=== PATIENT | male | born 1940 | race Caucasian/White ===

== ENCOUNTER → 2020-01-14 | Outpatient (CLI) | payer SELFPAY ==
[2020-01-14 14:20] LABS: BASOPHILS ABSOLUTE AUTO 0.04 K/mm3 (0.00-0.23); BASOPHILS PERCENT AUTO 1 % (0-2); EOSINOPHILS ABSOLUTE AUTO 0.07 K/mm3 (0.00-0.68); EOSINOPHILS PERCENT AUTO 1 % (0-6); Hematocrit 45.1 % (37.0-53.0); Hemoglobin 15.1 g/dL (13.5-17.5); IMMATURE GRAN ABSOLUTE AUTO 0.02 K/mm3 (0.00-0.10); IMMATURE GRAN PERCENT AUTO 0 % (0-1); LYMPHOCYTES ABSOLUTE AUTO 1.46 K/mm3 (0.84-5.20); LYMPHOCYTES PERCENT AUTO 24 % (21-46); MONOCYTES ABSOLUTE AUTO 0.51 K/mm3 (0.16-1.47); MONOCYTES PERCENT AUTO 9 % (4-13); Mean Corpuscular HGB Conc 33.5 g/dL (31.5-36.5); Mean Corpuscular Volume 99 fL (80-100); Mean Platelet Volume 11.5 fL (9.1-12.4); NEUTROPHILS ABSOLUTE AUTO 3.93 K/mm3 (1.96-9.15); NEUTROPHILS PERCENT AUTO 65 % (41-73); Platelet Count 198 K/mm3 (150-400); RDW Standard Deviation 47.4 fL (35.1-46.3); Red Blood Cell Count 4.58 M/mm3 (4.30-5.90); White Blood Cell Count 6.03 K/mm3 (4.00-11.30)
[2020-01-14 14:37] LABS: Alanine Aminotransfer (ALT/SGP 21 U/L (12-78); Albumin, Blood 3.6 g/dL (3.4-5.0); Albumin/Globulin Ratio 0.8 (0.8-1.8); Alk Phos 112 U/L (50-136); Anion Gap 7 mmol/L (6-16); Aspartate Aminotrans (AST/SGOT 21 U/L (12-37); Bilirubin, Total 0.6 mg/dL (0.1-1.0); Blood Urea Nitrogen 14 mg/dL (8-24); Bun/Creatinine Ratio 19.6 (12.0-20.0); CHOL/HDL RATIO 2.5; CO2, Blood 29 mmol/L (21-32); Calcium, Blood 8.7 mg/dL (8.5-10.1); Chloride, Blood 103 mmol/L (98-108); Cholesterol 143 mg/dL (50-200); Creatinine, Blood 0.72 mg/dL (0.60-1.20); Globulin, Blood 4.4 g/dL (2.2-4.0); Glomerular Filtration Rate >60 (60-); Glucose, Blood 111 mg/dL (70-99); HDL Cholesterol 57 mg/dL (>39); LDL/HDL RATIO 1.2; Low Density Lipoprotein Chol 70 mg/dL (0-110); Potassium, Blood 2.9 mmol/L (3.5-5.5); Sodium, Blood 139 mmol/L (136-145); Triglycerides 80 mg/dL (30-160); Very Low Density Lipoprot Chol 16 mg/dL (6-32)
== END | disposition home or self-care (01) ==
LOC: LAB 13:25 → LAB SHORT 13:25
PROVIDERS: Physician Assistant
DX: I10 Essential (primary) hypertension (principal)
CPT/HCPCS: 80053; 80061; 85025

== ENCOUNTER → 2020-04-28 | Outpatient (CLI) | payer SELFPAY ==
[~2020-04-28] MED LIST: CEFP200 PO
[2020-04-28 20:17] LABS: Bilirubin, Urine Neg (Neg); Blood, Urine 1+ (Neg); Glucose Qualitative, Urine 1+ (Neg); Ketones, Urine Neg (Neg); Leukocyte Esterase, Urine Neg (Neg); Nitrite, Urine Neg (Neg); Protein, Urine 2+ (Neg); Specific Gravity, Urine 1.015 (1.003-1.022); Urobilinogen, Urine NORM (Normal)
[2020-04-28 20:25] LABS: Appearance, Urine Clear (Clear); Color, Urine Yellow (P-Yellow)
[2020-04-28 20:26] LABS: Renal Epithelial Few /hpf (0-Rare); White Blood Cells, Urine 0-2 /hpf (0-5)
[2020-04-28 20:28] LABS: WBC Cast 0-2 /lpf (0)
[2020-04-28 20:29] LABS: Bacteria Few /hpf; Squamous Epithelial Cells Rare /hpf (Few); Transitional Epithelial Cells Rare /hpf (0-Rare)
== END | disposition home or self-care (01) ==
LOC: LAB SHORT 19:05 → LAB 19:05
PROVIDERS: Registered Nurse
DX: N39.0 Urinary tract infection, site not specified (principal)
CPT/HCPCS: 81001; 87086

== ENCOUNTER 2021-12-06 20:00 | Emergency (ER) | payer SELFPAY ==
[~2021-12-06] VITALS: Ht 175.3 cm; Wt 81.7 kg
[2021-12-06] MEDS ORDERED: MIRTAZAPINE PO (20:11)
[2021-12-06 20:30] LABS: Source, Urine Clean Catch
[2021-12-06 20:41] LABS: Bilirubin, Urine Neg (Neg); Blood, Urine 3+ (Neg); Glucose Qualitative, Urine Neg (Neg); Ketones, Urine Neg (Neg); Leukocyte Esterase, Urine 3+ (Neg); Nitrite, Urine Neg (Neg); Protein, Urine 1+ (Neg); Urobilinogen, Urine NORM (Normal)
[2021-12-06 20:54] LABS: Appearance, Urine Hazy (Clear); Color, Urine Yellow (P-Yellow)
[2021-12-06 20:55] LABS: Bacteria Few /hpf; Squamous Epithelial Cells Not Seen /hpf (Few); White Blood Cells, Urine TNTC /hpf (0-5)
[2021-12-06] MEDS ORDERED: Macrobid 100 M100 MG PO (21:03)
== END 2021-12-06 21:45 | disposition home or self-care (01) ==
LOC: ER 20:00
PROVIDERS: Physician Assistant
DX: N39.0 Urinary tract infection, site not specified (principal); I10 Essential (primary) hypertension; Z87.891 Personal history of nicotine dependence; Z79.899 Other long term (current) drug therapy
CPT/HCPCS: 81001; A9270

== ENCOUNTER 2023-06-23 10:29 | Inpatient (IN) | payer OTHER ==
[~2023-06-23] VITALS: Ht 185.4 cm; Wt 97.4 kg
[~2023-06-23 10:29] MED LIST changes: +MIRTAZAPINE PO; +Macrobid 100 M100 MG PO
[2023-06-23 10:49] LABS: BASOPHILS ABSOLUTE AUTO 0.04 K/mm3 (0.00-0.23); BASOPHILS PERCENT AUTO 1 % (0-2); EOSINOPHILS ABSOLUTE AUTO 0.14 K/mm3 (0.00-0.68); EOSINOPHILS PERCENT AUTO 2 % (0-6); Hemoglobin 14.8 g/dL (13.5-17.5); IMMATURE GRAN ABSOLUTE AUTO 0.04 K/mm3 (0.00-0.10); IMMATURE GRAN PERCENT AUTO 1 % (0-1); LYMPHOCYTES ABSOLUTE AUTO 1.92 K/mm3 (0.84-5.20); LYMPHOCYTES PERCENT AUTO 24 % (21-46); MONOCYTES PERCENT AUTO 8 % (4-13); Mean Corpuscular HGB 34.3 pg (26.0-34.0); Mean Corpuscular HGB Conc 33.6 g/dL (31.5-36.5); Mean Corpuscular Volume 102 fL (80-100); Mean Platelet Volume 9.9 fL (9.1-12.4); NEUTROPHILS ABSOLUTE AUTO 5.14 K/mm3 (1.96-9.15); NEUTROPHILS PERCENT AUTO 65 % (41-73); Platelet Count 163 K/mm3 (150-400); RDW Coefficient Variation 12.9 % (11.7-14.2); RDW Standard Deviation 49.1 fL (35.1-46.3); Red Blood Cell Count 4.32 M/mm3 (4.30-5.90); White Blood Cell Count 7.88 K/mm3 (4.00-11.30)
[2023-06-23 11:07] LABS: Albumin, Blood 3.2 g/dL (3.4-5.0); Albumin/Globulin Ratio 0.7 (0.8-1.8); Bilirubin, Total 0.3 mg/dL (0.1-1.0); Bun/Creatinine Ratio 28.2 (12.0-20.0); Creatinine, Blood 1.03 mg/dL (0.60-1.20); Globulin, Blood 4.4 g/dL (2.2-4.0); Potassium, Blood 4.1 mmol/L (3.5-5.5); Total Protein, Blood 7.6 g/dL (6.4-8.2)
[2023-06-23 12:07] LABS: Influenza A, PCR NEGATIVE (NEGATIVE); Influenza B, PCR NEGATIVE (NEGATIVE); Resp Syncytial Virus, PCR NEGATIVE (NEGATIVE); SARS-Cov-2 (COVID-19) PCR, MMC NEGATIVE (NEGATIVE)
[2023-06-23 17:19] VITALS: BP 147/74
--- NOTE | 2023-06-23 18:24 | NUR ---
ADMISSION NOTES: PATIENT ARRIVES TO ROOM AT 1713 FROM ED FOR DX'S OF COPD EXACERBATIONS. PATIENT IS AWAKE, ALERT AND ORIENTED TO SELF, PLACED AND CURRENT SITUATIONS, BUT COULD NOT RECALL THE DATES. PATIENT ORIENTATED TO ROOM AND CALL SYSTEM. ADMISSION, MEDRIC AND SKIN ASSESSMENT c 2 RN'S PRIZE COORDINATOR COMPLETED. PATIENT REPORTS "SOB c ACTIVITIES AND FEELING DEPRESSED." BUT NOT ABLE TO ELABORATE FURTHER. PATIENT LUNGS COARSE AND CRACKLES T/O TO AUSCULTIONS. NONPRODUCTIVE COUGH. PATIENT DENIES CP/PRESSURE, DIZZINESS, N/V AND GENERALIZED PAIN. PATIENT IS CONTINENCE OF BLADDER AND AMBULATES TO BATHROOM c 1 ASSIST AND FWW. PIV TO R FOREARM INFUSING ABX. PATIENT DECLINED TO EAT HIS DINNER. VITAL SIGNS REVIEWED. BED ALARM ON FOR SAFETY. CALL LIGHT IN REACH.
[2023-06-23 19:42] VITALS: BP 117/65
[2023-06-24 04:40] VITALS: BP 127/68
[2023-06-24 04:42] VITALS: BP 131/69
[2023-06-24 05:00] LABS: BASOPHILS ABSOLUTE AUTO 0.01 K/mm3 (0.00-0.23); BASOPHILS PERCENT AUTO 0 % (0-2); EOSINOPHILS PERCENT AUTO 0 % (0-6); Hematocrit 41.1 % (37.0-53.0); Hemoglobin 14.3 g/dL (13.5-17.5); IMMATURE GRAN ABSOLUTE AUTO 0.07 K/mm3 (0.00-0.10); IMMATURE GRAN PERCENT AUTO 1 % (0-1); LYMPHOCYTES ABSOLUTE AUTO 0.97 K/mm3 (0.84-5.20); LYMPHOCYTES PERCENT AUTO 8 % (21-46); MONOCYTES ABSOLUTE AUTO 0.21 K/mm3 (0.16-1.47); MONOCYTES PERCENT AUTO 2 % (4-13); Mean Corpuscular HGB 34.6 pg (26.0-34.0); Mean Corpuscular HGB Conc 34.8 g/dL (31.5-36.5); Mean Corpuscular Volume 100 fL (80-100); Mean Platelet Volume 10.5 fL (9.1-12.4); NEUTROPHILS PERCENT AUTO 90 % (41-73); Platelet Count 156 K/mm3 (150-400); RDW Standard Deviation 47.2 fL (35.1-46.3); Red Blood Cell Count 4.13 M/mm3 (4.30-5.90); White Blood Cell Count 12.06 K/mm3 (4.00-11.30)
[2023-06-24 05:21] LABS: Albumin/Globulin Ratio 0.8 (0.8-1.8); Bilirubin, Total 0.3 mg/dL (0.1-1.0); Bun/Creatinine Ratio 36.1 (12.0-20.0); Calcium, Blood 9.2 mg/dL (8.5-10.1); Creatinine, Blood 0.86 mg/dL (0.60-1.20); Globulin, Blood 3.8 g/dL (2.2-4.0); Potassium, Blood 4.8 mmol/L (3.5-5.5); Total Protein, Blood 6.8 g/dL (6.4-8.2)
--- NOTE | 2023-06-24 05:39 | NUR ---
SHIFT SUMMARY PT IS A&OX4, FORGETFUL AT TIMES. NORMOTENSIVE, HR IN THE 80'S, AFEBRILE, O2 SATS >90% ON 2L NC. DYSPNEIC AND WORK OF BREATHING INCREASES WITH EXERTION. DENIES PAIN, BUT GROANS AND MOANS A LOT. TOLERATING A REGULAR DIET, AND LOVES CHOCOLATE. HIS DENTURES ARE AT [facility]. X1 SBA TO BR. VOIDS IN TOILET, CONTINENT, BRIEF IN PLACE. NO BM THIS SHIFT. PT HAS FEELING OF IMPENDING DOOM, AND IS ANXIOUS. BED ALARM SET FOR PTS SAFETY. BED IN LOWEST POSITION AND CALL LIGHT WITHIN REACH. FIRE SAFETY CHECKS COMPLETED
[2023-06-24 07:56] VITALS: BP 121/61
[2023-06-24] MEDS ORDERED: HYDCHL50 PO (10:21)
[2023-06-24] MEDS ORDERED: FLOMAX0.4 MG PO (10:22)
--- NOTE | 2023-06-24 14:13 | NUR ---
Upon receiving a referral for spiritual care, I visited the patient, Patient immediately tells me about his yrs in the [employer] and how they were forma tive to his career choice. 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 He tells me about his struggles with [employer] and yet he admits to a "greater something out there." He explains about the estrangement with his son and ex- and his continued contact by phone with his dtr. We discuss possible pathways of reconciliation. I provide therapeutic listening, prayer and gentle funeral planning counselor. Patient responded well and showed signs of greater peace. I will cotninue to remain available to patient and his family.
--- NOTE | 2023-06-24 18:30 | NUR ---
SHIFT SUMMARY: NO ACUTE EVENTS. DENIED PAIN. ON ROOM AIR, CONTINUOUS OXIMETRY SHOWS O2 SATS 88-92%. GETTING UP TO BR WITH ONE PERSON ASSIST. HAD VERY SMALL BM TODAY. WORKED WITH PHYSICAL THERAPY. HAS PERIODS OF CONFUSION AND FORGETFULNESS. UP IN CHAIR PART OF THE DAY.
[2023-06-24 19:16] VITALS: BP 118/70
--- NOTE | 2023-06-25 02:45 | NUR ---
PT OXYGEN DOWN TO 88 WHILE ASLEEP- APPLIED 1L OXYGEN- PT OXYGEN INCREASES WNL WHILE AWAKE-
[2023-06-25 02:46] VITALS: BP 120/58
[2023-06-25 05:09] LABS: BASOPHILS ABSOLUTE AUTO 0.02 K/mm3 (0.00-0.23); BASOPHILS PERCENT AUTO 0 % (0-2); EOSINOPHILS PERCENT AUTO 0 % (0-6); Hematocrit 43.7 % (37.0-53.0); Hemoglobin 14.4 g/dL (13.5-17.5); IMMATURE GRAN ABSOLUTE AUTO 0.12 K/mm3 (0.00-0.10); IMMATURE GRAN PERCENT AUTO 1 % (0-1); LYMPHOCYTES ABSOLUTE AUTO 1.15 K/mm3 (0.84-5.20); LYMPHOCYTES PERCENT AUTO 7 % (21-46); MONOCYTES ABSOLUTE AUTO 0.52 K/mm3 (0.16-1.47); MONOCYTES PERCENT AUTO 3 % (4-13); Mean Corpuscular Volume 103 fL (80-100); Mean Platelet Volume 10.5 fL (9.1-12.4); NEUTROPHILS ABSOLUTE AUTO 15.98 K/mm3 (1.96-9.15); NEUTROPHILS PERCENT AUTO 90 % (41-73); Platelet Count 155 K/mm3 (150-400); RDW Coefficient Variation 13.3 % (11.7-14.2); RDW Standard Deviation 50.9 fL (35.1-46.3); Red Blood Cell Count 4.23 M/mm3 (4.30-5.90); White Blood Cell Count 17.79 K/mm3 (4.00-11.30)
[2023-06-25 05:35] LABS: Bun/Creatinine Ratio 37.9 (12.0-20.0); Calcium, Blood 9.4 mg/dL (8.5-10.1); Creatinine, Blood 1.03 mg/dL (0.60-1.20); Potassium, Blood 5.6 mmol/L (3.5-5.5)
--- NOTE | 2023-06-25 06:43 | NUR ---
SHIFT SUMMARY BEDSIDE REPORT FROM SARAH LEAL RN- PT UP TO BATHROOM DURING BEDSIDE REPORT- PT AMBULATES WITHOUT PROBLEMS- ALLOWED PT TO BE INDEPENDENT IN ROOM UNTIL OXYGEN WAS APPLIED, ENCOURAGED PT TO CALL TO ASSIST WITH TAKING OFF OXYGEN AND SENIOR BEHAVIORAL SCIENTIST- PT AGREED AND CALLED APPROPRIATELY REST OF SHIFT- PT K+ 5.6- CALL TO DR. AVILA- NO NEW ORDERS AT THIS TIME BED LOW POSITION, CALL LIGHT WITHIN REACH
[2023-06-25 07:34] VITALS: BP 126/62
[2023-06-25] MEDS ORDERED: Incruse Ellipta 62.5 INH (10:08)
[2023-06-25] MEDS ORDERED: PRED20 PO (13:54)
[2023-06-25] MEDS ORDERED: AMOCLA875 PO (13:55)
[2023-06-25 14:59] VITALS: BP 111/56
--- NOTE | 2023-06-25 15:35 | NUR ---
PATIENT DISCHARGED TO [facility] VIA W/C VAN. IV SALINE LOCK REMOVED WITHOUT INCIDENT. NEW MEDICATIONS FAXED TO [facility]. PT DID NOT VERBALIZE UNDERSTANDING OF D/C INSTRUCTIONS HE STATED "I'M NOT SURE IF I CAN REMEMBER ALL THAT." ASSURED HIM THAT [facility] WILL HELP HIM WITH HIS NEW MEDICATIONS. PT WAS ASSISTED IN GETTING DRESSED IN HIS OWN CLOTHING. OFF UNIT VIA W/C AT 1535. NO PERSONAL BELONGINGS LEFT BEHIND IN ROOM.
== END 2023-06-25 15:35 | disposition home health service (06) | DRG 189 ==
LOC: ER 10:29 → MEDS 10:30
PROVIDERS: Emergency Medicine; Family Medicine; Student in an Organized Health Care Education/Training Program; ADMIT Hospitalist
DX: J96.01 Acute respiratory failure with hypoxia (principal); J44.1 Chronic obstructive pulmonary disease with (acute) exacerbation; N40.0 Benign prostatic hyperplasia without lower urinary tract symptoms; I10 Essential (primary) hypertension; Z66 Do not resuscitate; I71.40 Abdominal aortic aneurysm, without rupture, unspecified; Z87.891 Personal history of nicotine dependence; Z11.52 Encounter for screening for COVID-19
CPT/HCPCS: 0241U; 36415; 71045; 80048; 80053; 83880; 84484; 85025; 93005; 93010; 94640; 94644; 94664; 94760; 94762; 96365; 96367; 96372; 96374; 96375; 96376; 97110; 97116; 97162; 99285-25; A9270; G0378; J0456; J0696; J1650; J2930; J7050; J7512

== ENCOUNTER → 2024-02-04 | Outpatient (CLI) | payer OTHER ==
[~2024-02-04] MED LIST changes: +AMOCLA875 PO; +FLOMAX0.4 MG PO; +HYDCHL50 PO; +Incruse Ellipta 62.5 INH; +PRED20 PO
[2024-02-04 15:28] LABS: Source, Urine Voided
[2024-02-04 17:23] LABS: Appearance, Urine Hazy (Clear); Bilirubin, Urine Neg (Neg); Blood, Urine Neg (Neg); Color, Urine Yellow (P-Yellow); Glucose Qualitative, Urine Neg (Neg); Ketones, Urine Neg (Neg); Leukocyte Esterase, Urine 2+ (Neg); Nitrite, Urine Neg (Neg); Protein, Urine Neg (Neg); Urobilinogen, Urine NORM (Normal)
[2024-02-04 17:42] LABS: Bacteria Few /hpf; Red Blood Cells, Urine 0-2 /hpf (0-2); Squamous Epithelial Cells Rare /hpf (Few); White Blood Cells, Urine 25-50 /hpf (0-5)
[2024-02-04 17:43] LABS: Mucus Light (0-Heavy)
== END | disposition home or self-care (01) ==
LOC: LAB SHORT 15:25 → LAB 15:25
PROVIDERS: Internal Medicine Geriatric Medicine
DX: N39.0 Urinary tract infection, site not specified (principal)
CPT/HCPCS: 81001; 87077; 87086; 87186

== ENCOUNTER → 2024-02-24 | Outpatient (CLI) | payer OTHER ==
[2024-02-24 14:18] LABS: Appearance, Urine Clear (Clear); Bilirubin, Urine Neg (Neg); Blood, Urine Neg (Neg); Color, Urine Yellow (P-Yellow); Glucose Qualitative, Urine Neg (Neg); Ketones, Urine Neg (Neg); Leukocyte Esterase, Urine Neg (Neg); Nitrite, Urine Neg (Neg); Protein, Urine Neg (Neg); Specific Gravity, Urine 1.015 (1.003-1.022); Urobilinogen, Urine NORM (Normal)
== END | disposition home or self-care (01) ==
LOC: LAB SHORT 10:00
PROVIDERS: Internal Medicine Geriatric Medicine
DX: N39.0 Urinary tract infection, site not specified (principal)
CPT/HCPCS: 81003; 87086

== ENCOUNTER → 2024-03-25 | Outpatient (CLI) | payer OTHER ==
[2024-03-25 16:30] LABS: Source, Urine Voided
[2024-03-25 17:39] LABS: Appearance, Urine Clear (Clear); Bilirubin, Urine Neg (Neg); Blood, Urine Neg (Neg); Color, Urine Yellow (P-Yellow); Glucose Qualitative, Urine Neg (Neg); Ketones, Urine Neg (Neg); Leukocyte Esterase, Urine 1+ (Neg); Nitrite, Urine Neg (Neg); Protein, Urine 1+ (Neg); Urobilinogen, Urine 1+ (Normal)
[2024-03-25 18:01] LABS: Amorphous Light (0-Heavy); Bacteria Few /hpf; Hyaline Casts 0-2 /lpf (0-2); Squamous Epithelial Cells Few /hpf (Few)
== END ==
LOC: LAB 16:27 → LAB SHORT 16:27
PROVIDERS: Psychiatry & Neurology Neurology
DX: N39.0 Urinary tract infection, site not specified (principal)
CPT/HCPCS: 81001; 87086

== ENCOUNTER → 2024-04-13 | Outpatient (CLI) | payer OTHER ==
[2024-04-13 16:09] LABS: Source, Urine Voided
[2024-04-13 18:13] LABS: Appearance, Urine Clear (Clear); Bilirubin, Urine Neg (Neg); Blood, Urine Neg (Neg); Color, Urine Yellow (P-Yellow); Glucose Qualitative, Urine Neg (Neg); Ketones, Urine Neg (Neg); Leukocyte Esterase, Urine Neg (Neg); Nitrite, Urine Neg (Neg); Protein, Urine 1+ (Neg); Specific Gravity, Urine 1.015 (1.003-1.022); Urobilinogen, Urine 1+ (Normal)
== END | disposition home or self-care (01) ==
LOC: LAB 16:07 → LAB SHORT 16:07
PROVIDERS: Family Medicine
DX: N39.0 Urinary tract infection, site not specified (principal)
CPT/HCPCS: 87086

== ENCOUNTER → 2024-04-27 | Outpatient (CLI) | payer OTHER ==
[~2024-04-27] MED LIST changes: +ACET500 PO; +ALBU90OI INH; +BACL10 PO; +DOCU100 PO; +DONE5 PO; +LOPE2C PO
[2024-04-28 14:08] LABS: Appearance, Urine Clear (Clear); Bilirubin, Urine Neg (Neg); Blood, Urine Neg (Neg); Color, Urine Yellow (P-Yellow); Glucose Qualitative, Urine Neg (Neg); Ketones, Urine Neg (Neg); Leukocyte Esterase, Urine 1+ (Neg); Nitrite, Urine Neg (Neg); Protein, Urine 1+ (Neg); Urobilinogen, Urine 1+ (Normal)
[2024-04-28 14:20] LABS: Bacteria Many /hpf; Mucus Light (0-Heavy); Red Blood Cells, Urine 0-2 /hpf (0-2); Squamous Epithelial Cells Rare /hpf (Few)
[2024-04-28 14:21] LABS: Calcium Oxalate Crystals Mod /hpf
== END | disposition home or self-care (01) ==
LOC: LAB 14:40 → LAB SHORT 14:40
PROVIDERS: Psychiatry & Neurology Neurology
DX: N39.0 Urinary tract infection, site not specified (principal)
CPT/HCPCS: 81001; 87086

== ENCOUNTER 2024-04-30 09:38 | Emergency (ER) | payer OTHER ==
[~2024-04-30] VITALS: Ht 185.4 cm; Wt 90.7 kg
[~2024-04-30 09:38] MED LIST changes: -ACET500 PO; -ALBU90OI INH; -BACL10 PO; -DOCU100 PO; -DONE5 PO; -LOPE2C PO
[2024-04-30 12:59] VITALS: BP 136/76
[2024-05-01] MEDS ORDERED: ACET500 PO (10:38)
[2024-05-01] MEDS ORDERED: ALBU90OI INH (10:38)
[2024-05-01] MEDS ORDERED: BACL10 PO (10:39)
[2024-05-01] MEDS ORDERED: LOPE2C PO (10:39)
[2024-05-01] MEDS ORDERED: DONE5 PO (10:39)
[2024-05-01] MEDS ORDERED: DOCU100 PO (10:39)
== END 2024-04-30 13:13 | disposition home or self-care (01) ==
LOC: ER 09:38
DX: S09.90XA Unspecified injury of head, initial encounter (principal); S51.812A Laceration without foreign body of left forearm, initial encounter; I10 Essential (primary) hypertension; J44.9 Chronic obstructive pulmonary disease, unspecified; X50.9XXA Other and unspecified overexertion or strenuous movements or postures, initial encounter; Z87.891 Personal history of nicotine dependence; Z79.52 Long term (current) use of systemic steroids; Z79.899 Other long term (current) drug therapy
CPT/HCPCS: 70450; 99284-25

== ENCOUNTER 2024-05-01 10:17 | Emergency (ER) | payer OTHER ==
[~2024-05-01] VITALS: Ht 185.4 cm; Wt 90.7 kg
[2024-05-01] MEDS ORDERED: ACET500 PO (10:38)
[2024-05-01] MEDS ORDERED: ALBU90OI INH (10:38)
[2024-05-01 10:39] LABS: BASOPHILS ABSOLUTE AUTO 0.03 K/mm3 (0.00-0.23); BASOPHILS PERCENT AUTO 1 % (0-2); EOSINOPHILS ABSOLUTE AUTO 0.08 K/mm3 (0.00-0.68); EOSINOPHILS PERCENT AUTO 1 % (0-6); Hematocrit 46.7 % (37.0-53.0); Hemoglobin 15.4 g/dL (13.5-17.5); IMMATURE GRAN ABSOLUTE AUTO 0.02 K/mm3 (0.00-0.10); IMMATURE GRAN PERCENT AUTO 0 % (0-1); LYMPHOCYTES ABSOLUTE AUTO 0.92 K/mm3 (0.84-5.20); LYMPHOCYTES PERCENT AUTO 15 % (21-46); MONOCYTES ABSOLUTE AUTO 0.37 K/mm3 (0.16-1.47); MONOCYTES PERCENT AUTO 6 % (4-13); Mean Corpuscular HGB 32.5 pg (26.0-34.0); Mean Corpuscular Volume 99 fL (80-100); Mean Platelet Volume 10.8 fL (9.1-12.4); NEUTROPHILS ABSOLUTE AUTO 4.68 K/mm3 (1.96-9.15); NEUTROPHILS PERCENT AUTO 77 % (41-73); Platelet Count 147 K/mm3 (150-400); RDW Coefficient Variation 14.6 % (11.7-14.2); RDW Standard Deviation 53.4 fL (35.1-46.3); Red Blood Cell Count 4.74 M/mm3 (4.30-5.90)
[2024-05-01] MEDS ORDERED: DOCU100 PO (10:39)
[2024-05-01] MEDS ORDERED: DONE5 PO (10:39)
[2024-05-01] MEDS ORDERED: BACL10 PO (10:39)
[2024-05-01] MEDS ORDERED: LOPE2C PO (10:39)
[2024-05-01 11:13] LABS: Albumin/Globulin Ratio 0.8 (0.8-1.8); Bilirubin, Total 0.7 mg/dL (0.1-1.0); Bun/Creatinine Ratio 13.5 (12.0-20.0); Creatinine, Blood 0.89 mg/dL (0.60-1.20); Globulin, Blood 3.8 g/dL (2.2-4.0); Magnesium, Blood 1.8 mg/dL (1.6-2.4); Potassium, Blood 3.9 mmol/L (3.5-5.5); Total Protein, Blood 6.8 g/dL (6.4-8.2)
[2024-05-01 14:02] VITALS: BP 145/71
== END 2024-05-01 14:05 | disposition home or self-care (01) ==
LOC: ER 10:17
PROVIDERS: Emergency Medicine
DX: R55 Syncope and collapse (principal); I71.43 Infrarenal abdominal aortic aneurysm, without rupture; I10 Essential (primary) hypertension; J44.9 Chronic obstructive pulmonary disease, unspecified; Z79.899 Other long term (current) drug therapy; Z87.891 Personal history of nicotine dependence
CPT/HCPCS: 71045; 76775; 80053; 83735; 83880; 85025; 93005; 93010; 99285-25

== ENCOUNTER 2024-05-02 16:36 | Observation (INO) | payer OTHER ==
[~2024-05-02] VITALS: Ht 185.4 cm; Wt 86.6 kg
[~2024-05-02 16:36] MED LIST changes: +ACET500 PO; +ALBU90OI INH; +BACL10 PO; +DOCU100 PO; +DONE5 PO; +LOPE2C PO
[2024-05-02 17:15] LABS: BASOPHILS ABSOLUTE AUTO 0.03 K/mm3 (0.00-0.23); BASOPHILS PERCENT AUTO 1 % (0-2); EOSINOPHILS ABSOLUTE AUTO 0.18 K/mm3 (0.00-0.68); EOSINOPHILS PERCENT AUTO 3 % (0-6); Hemoglobin 14.3 g/dL (13.5-17.5); IMMATURE GRAN ABSOLUTE AUTO 0.02 K/mm3 (0.00-0.10); IMMATURE GRAN PERCENT AUTO 0 % (0-1); LYMPHOCYTES ABSOLUTE AUTO 1.36 K/mm3 (0.84-5.20); LYMPHOCYTES PERCENT AUTO 23 % (21-46); MONOCYTES ABSOLUTE AUTO 0.59 K/mm3 (0.16-1.47); MONOCYTES PERCENT AUTO 10 % (4-13); Mean Corpuscular HGB 32.1 pg (26.0-34.0); Mean Corpuscular HGB Conc 32.5 g/dL (31.5-36.5); Mean Corpuscular Volume 99 fL (80-100); Mean Platelet Volume 10.9 fL (9.1-12.4); NEUTROPHILS ABSOLUTE AUTO 3.68 K/mm3 (1.96-9.15); NEUTROPHILS PERCENT AUTO 63 % (41-73); Platelet Count 144 K/mm3 (150-400); RDW Coefficient Variation 14.7 % (11.7-14.2); RDW Standard Deviation 53.6 fL (35.1-46.3); Red Blood Cell Count 4.46 M/mm3 (4.30-5.90); White Blood Cell Count 5.86 K/mm3 (4.00-11.30)
[2024-05-02 17:32] LABS: Free Thyroxine 0.97 ng/dL (0.70-1.60); Magnesium, Blood 1.9 mg/dL (1.6-2.4)
[2024-05-02 17:35] LABS: Bun/Creatinine Ratio 18.5 (12.0-20.0); Calcium, Blood 8.2 mg/dL (8.5-10.1); Creatinine, Blood 0.86 mg/dL (0.60-1.20); Potassium, Blood 3.7 mmol/L (3.5-5.5); Thyroid Stimulating Hormone 0.974 uIU/mL (0.360-4.800)
[2024-05-02] MEDS ORDERED: Azithromycin 500 MG in NS 250 ML IV ONE (19:35)
[2024-05-02] MEDS ORDERED: CefTRIAXone Sodium 1,000 MG in NS 100 ML IV ONE (19:35)
[2024-05-02] MEDS ORDERED: LORazepam 2 MG/ML 1ML Injection IV ONE (20:15)
[2024-05-02 20:52] LABS: Source, Urine Clean Catch
[2024-05-02 20:57] LABS: Appearance, Urine Hazy (Clear); Bilirubin, Urine Neg (Neg); Blood, Urine Neg (Neg); Color, Urine Yellow (P-Yellow); Glucose Qualitative, Urine Neg (Neg); Ketones, Urine Neg (Neg); Leukocyte Esterase, Urine 1+ (Neg); Nitrite, Urine Neg (Neg); Protein, Urine 1+ (Neg); Specific Gravity, Urine 1.025 (1.003-1.022); Urobilinogen, Urine 1+ (Normal)
[2024-05-02 21:03] LABS: Bacteria Mod /hpf; Red Blood Cells, Urine 0-2 /hpf (0-2); Squamous Epithelial Cells Mod /hpf (Few)
[2024-05-02] MEDS ORDERED: FLU VACC TS2024-25(6MOS UP)/PF 45 MCG/0.5 ML SYRINGE IM SCH (23:10)
[2024-05-02] MEDS ORDERED: Magnesium Hydroxide Conc 10 ML UDC PO PRN (23:10)
[2024-05-02] MEDS ORDERED: Acetaminophen 325 MG TABLET PO PRN (23:15)
[2024-05-02] MEDS ORDERED: Tiotropium Bromide 2.5 MCG/ACT MIST INHAL (10 ACT/4 GM) INH SCH (23:15)
[2024-05-02 23:38] VITALS: BP 127/80
[2024-05-02] MEDS ORDERED: Ibuprofen 400 MG Tab PO PRN (23:50)
[2024-05-03] MEDS ORDERED: Baclofen 10 MG Tab PO SCH
[2024-05-03] MEDS ORDERED: Ipratropium/Albuterol SulF 2.5-0.5MG/3 ML Amp INH SCH (00:40)
[2024-05-03] MEDS ORDERED: Albuterol 2.5 MG/3 ML VIAL INH PRN (00:40)
[2024-05-03] MEDS ORDERED: Albuterol HFA200 ACT/6.7 GM INH INH PRN (00:50)
--- NOTE | 2024-05-03 01:08 | NUR ---
ADMIT NOTE PT ADMITTED FROM THE ED WITH BRONCHITIS/PNEUMONIA- ARRIVED TO ROOM AT 2330. PATIENT WITH 2 LARGE SKIN TEARS TO LEFT HAND AND LEFT ELBOW. PT ALSO WITH SCAB TO RIGHT KNEE AND SCATTERED BRUISES. PICTURES TAKEN OF SKIN TEARS AND SCAB. DR. GUDINO NOTIFIED. PT ORIENTED TO ROOM, CALL LIGHT WITHIN REACH, SIDERAILS UP X2, BED ALARM ON.
--- NOTE | 2024-05-03 05:02 | NUR ---
SHIFT SUMMARY PT. ON 2L NC. OCC COUGH. RESTED THROUGH THE NIGHT. BED ALARM ON, SIDE RAILS UP X2, CALL LIGHT WITHIN REACH.
[2024-05-03 05:51] VITALS: BP 107/94
[2024-05-03 07:13] VITALS: BP 119/72
[2024-05-03] MEDS ORDERED: Polyethylene Glycol 3350 17 gm PO PRN (07:45)
[2024-05-03 08:30] LABS: BASOPHILS ABSOLUTE AUTO 0.03 K/mm3 (0.00-0.23); BASOPHILS PERCENT AUTO 0 % (0-2); EOSINOPHILS PERCENT AUTO 3 % (0-6); Hematocrit 47.1 % (37.0-53.0); Hemoglobin 15.1 g/dL (13.5-17.5); IMMATURE GRAN ABSOLUTE AUTO 0.02 K/mm3 (0.00-0.10); IMMATURE GRAN PERCENT AUTO 0 % (0-1); LYMPHOCYTES ABSOLUTE AUTO 1.28 K/mm3 (0.84-5.20); LYMPHOCYTES PERCENT AUTO 19 % (21-46); MONOCYTES PERCENT AUTO 7 % (4-13); Mean Corpuscular HGB 32.3 pg (26.0-34.0); Mean Corpuscular HGB Conc 32.1 g/dL (31.5-36.5); Mean Corpuscular Volume 101 fL (80-100); NEUTROPHILS ABSOLUTE AUTO 4.79 K/mm3 (1.96-9.15); NEUTROPHILS PERCENT AUTO 70 % (41-73); Platelet Count 146 K/mm3 (150-400); RDW Coefficient Variation 14.9 % (11.7-14.2); RDW Standard Deviation 55.7 fL (35.1-46.3); Red Blood Cell Count 4.68 M/mm3 (4.30-5.90); White Blood Cell Count 6.82 K/mm3 (4.00-11.30)
[2024-05-03 08:50] LABS: Albumin, Blood 3.1 g/dL (3.4-5.0); Albumin/Globulin Ratio 0.8 (0.8-1.8); Bilirubin, Total 0.6 mg/dL (0.1-1.0); Bun/Creatinine Ratio 14.6 (12.0-20.0); Calcium, Blood 8.7 mg/dL (8.5-10.1); Creatinine, Blood 0.89 mg/dL (0.60-1.20); Globulin, Blood 3.7 g/dL (2.2-4.0); Potassium, Blood 4.1 mmol/L (3.5-5.5); Total Protein, Blood 6.8 g/dL (6.4-8.2)
[2024-05-03] MEDS ORDERED: Lactobacil 2-S.Thermo-Bifido 1 1 Cap PO SCH (09:00)
[2024-05-03] MEDS ORDERED: Docusate Sodium 100 MG Cap PO SCH (09:00)
[2024-05-03] MEDS ORDERED: Enoxaparin 40 MG/0.4 ML SYR SC SCH (09:00)
[2024-05-03] MEDS ORDERED: PredniSONE 20 MG Tab PO SCH (09:00)
[2024-05-03] MEDS ORDERED: Amoxicillin/Clavulanate K 875 MG Tab PO SCH (09:00)
[2024-05-03] MEDS ORDERED: Tamsulosin HCl 0.4 MG Cap PO SCH (09:00)
[2024-05-03] MEDS ORDERED: Melatonin 3 MG Tab PO PRN (10:55)
[2024-05-03 14:37] VITALS: BP 115/75
--- NOTE | 2024-05-03 15:30 | NUR ---
SHIFT SUMMARY PATIENT A/OX4, ABLE TO AMBULATE 1 SBA TO BATHROOM AND IN ROOM FOR SAFETY. SKIN TEAR TO LEFT HAND AND LEFT ELBOW DRESSING CHANGED, NO S/S OF INFECTION, C/O MILD PAIN AT THESE SITES. SMALL REGULAR BM THIS SHIFT, [facility] REPORTS DIARRHEA ON 05/01. TOLERATING ROOM AIR MOST OF SHIFT. TOLERATING ABX. ABLE TO MAKE NEEDS KNOWN.
[2024-05-03] MEDS ORDERED: CefTRIAXone Sodium 1,000 MG in NS 100 ML IV SCH (19:00)
[2024-05-03 19:48] VITALS: BP 117/58
[2024-05-03] MEDS ORDERED: Docusate Sodium/Senna 1 Tab PO SCH (21:00)
[2024-05-03] MEDS ORDERED: Azithromycin 250 MG Tab PO SCH ×2 (21:00)
--- NOTE | 2024-05-03 21:21 | NUR ---
PT UP TO BATHROOM AT 2029. O2 SAT 90% ON RA UPON RETURN TO BED.
[2024-05-04 02:43] VITALS: BP 113/65
--- NOTE | 2024-05-04 05:52 | NUR ---
SHIFT SUMMARY PT RESTLESS, NOT SLEEPING WELL THROUGH THE NIGHT. TYLENOL GIVEN FOR C/O BACK PAIN WITH RELIEF. PT ON RA, SATS LOW 90'S. OOB TO BR WITH SOME SOB DURING ACTIVITY. REPOSITIONED FOR COMFORT THROUGHOUT THE NIGHT. PT A&O, FORGETFUL AT TIMES. BEDALARM ON, CALL LIGHT WITHIN REACH, SIDE RAILS UP X2.
[2024-05-04 06:01] LABS: Hematocrit 41.8 % (37.0-53.0); Hemoglobin 13.6 g/dL (13.5-17.5); Mean Corpuscular HGB 32.4 pg (26.0-34.0); Mean Corpuscular HGB Conc 32.5 g/dL (31.5-36.5); Mean Corpuscular Volume 100 fL (80-100); Mean Platelet Volume 11.2 fL (9.1-12.4); Platelet Count 127 K/mm3 (150-400); RDW Coefficient Variation 14.8 % (11.7-14.2); RDW Standard Deviation 54.5 fL (35.1-46.3); White Blood Cell Count 8.08 K/mm3 (4.00-11.30)
[2024-05-04 06:19] LABS: Albumin, Blood 2.6 g/dL (3.4-5.0); Anion Gap 9 mmol/L (3-11); Blood Urea Nitrogen 14 mg/dL (8-24); Bun/Creatinine Ratio 16.5 (12.0-20.0); CO2, Blood 29 mmol/L (21-32); Calcium, Blood 8.4 mg/dL (8.5-10.1); Chloride, Blood 105 mmol/L (98-108); Creatinine, Blood 0.85 mg/dL (0.60-1.20); Glomerular Filtration Rate 85 (60-); Glucose, Blood 103 mg/dL (70-99); Magnesium, Blood 1.9 mg/dL (1.6-2.4); Phosphorus, Blood 3.1 mg/dL (2.5-4.9); Potassium, Blood 3.7 mmol/L (3.5-5.5); Sodium, Blood 139 mmol/L (136-145)
[2024-05-04 07:21] VITALS: BP 116/61
[2024-05-04 15:53] VITALS: BP 107/50
--- NOTE | 2024-05-04 16:51 | NUR ---
SHIFT NOTE: PT A/OX2. HE IS FORGETFUL AT TIMES AND STATES "YOU SHOULD JUST KILL ME. NO ONE SHOULD LIVE IF THEY CAN'T REMEMBER ONE THOUGHT TO THE NEXT." THIS RN PROVIDED THERAPEUTIC LISTENING AND ENCOURAGMENT. THIS RN UPDATED NELLY (POA) ON PLAN OF CARE. HE IS ON RA WITH NO S/SX OF SOB OR DISTRESS. THE SKIN TEAR ON HIS LEFT ELBOW HAS A NEW DRESSING. HE HAS BEEN SBA IN ROOM WITH WALKER AND 1P STAFF. HE TAKES HIS PILLS WHOLE WITH WATER. WILL CONTINUE TO MONITOR AND REPORT TO ONCOMING RN
[2024-05-04 19:52] VITALS: BP 120/50
[2024-05-04] MEDS ORDERED: TraZODone HCl 50 MG Tab PO ONE (23:55)
[2024-05-05 03:57] VITALS: BP 126/79
--- NOTE | 2024-05-05 05:11 | NUR ---
SHIFT SUMMARY PT OX3, INCREASINGLY FORGETFUL COMPARED TO THE NIGHT BEFORE. PT WITH DIFFICULTY SLEEPING. PT REQUESTING ADDITIONAL MEDS AFTER MELATONIN DID NOT HELP HIM SLEEP. PROVIDER ORDERED 1X TRAZADONE, BUT WHEN IT BECAME AVAILABLE FROM PHARMACY PT WAS SLEEPING. SLEPT LONG INTERVALS AFTER MIDNIGHT. AMBULATES TO BR WITH 1 ASSIST AND WALKER. SOB WITH ACTIVITY. 1LNC PLACED ON PT BRIEFLY FOR SATS IN THE HIGH 80'S AFTER AMBULATING. PT CURRENTLY BACK TO ROOM AIR. BED ALARM ON, CALL LIGHT WITHIN REACH. SIDERAILS UP X2.
[2024-05-05 05:59] LABS: Hematocrit 40.5 % (37.0-53.0); Hemoglobin 13.1 g/dL (13.5-17.5); Mean Corpuscular HGB 32.1 pg (26.0-34.0); Mean Corpuscular HGB Conc 32.3 g/dL (31.5-36.5); Mean Corpuscular Volume 99 fL (80-100); Platelet Count 136 K/mm3 (150-400); RDW Coefficient Variation 14.8 % (11.7-14.2); RDW Standard Deviation 54.4 fL (35.1-46.3); Red Blood Cell Count 4.08 M/mm3 (4.30-5.90); White Blood Cell Count 7.69 K/mm3 (4.00-11.30)
[2024-05-05 06:23] LABS: Bun/Creatinine Ratio 16.6 (12.0-20.0); Creatinine, Blood 0.84 mg/dL (0.60-1.20); Potassium, Blood 4.1 mmol/L (3.5-5.5)
[2024-05-05 07:17] VITALS: BP 129/77
[2024-05-05 14:52] VITALS: BP 117/66
[2024-05-05] MEDS ORDERED: AMOCLA875 PO (15:23)
[2024-05-05] MEDS ORDERED: PRED20 PO (15:23)
[2024-05-05] MEDS ORDERED: 1/2 NS 250ml250 ML (15:24)
--- NOTE | 2024-05-05 17:51 | NUR ---
DISCHARGE SUMMARY: A&Ox3-4 WITH EPISODIC FORGETFULNESS; EASILY REDIRECTED. PLEASANT AND COOPERATIVE WITH CARE. ABLE TO ADVOCATE NEEDS EFFECTIVELY. AMBULATES 1PA c FWW; IMPAIRED GAIT SECONDARY TO WEAKNESS AND POOR JUDGMENTMENT/IMPULSIVENESS. CONTINENT OF BOWEL AND BLADDER. BM TODAY. MEDS WHOLE WITH FLUIDS. NO C/O PAIN OR DISCOMFORT. REQUESTED FACIAL SHAVE TODAY BUT DENIED SHOWER IN ANTICIPATION OF GOING HOME AND USING SHOWER THERE. WOUND DONE TO SKIN TEAR x2 LEFT ELBOW; APPLIED STERI STRIPS, TRIPLE ANTIBIOTIC AND COVERED WITH MEPILEX. IV LFA REMOVED BY THIS RN. DISCHARGE ORDERS AND MED REC SENT TO [facility]. PATIENT LEFT UNIT WITH ALL BELONGINGS AND DISCHARGE PACKET. TRANSPORTATION PROVIDED BY [facility].
== END 2024-05-05 17:10 | disposition home health service (06) ==
LOC: ER 16:36 → MEDS 16:37
PROVIDERS: Emergency Medicine; Hospitalist; Internal Medicine; Student in an Organized Health Care Education/Training Program; ADMIT Internal Medicine
DX: J96.01 Acute respiratory failure with hypoxia (principal); N39.0 Urinary tract infection, site not specified; F03.90 Unspecified dementia, unspecified severity, without behavioral disturbance, psychotic disturbance, mood disturbance, and anxiety; G47.00 Insomnia, unspecified; I10 Essential (primary) hypertension; J44.9 Chronic obstructive pulmonary disease, unspecified; Z66 Do not resuscitate; Z79.899 Other long term (current) drug therapy; W18.30XA Fall on same level, unspecified, initial encounter
CPT/HCPCS: 36415; 70450; 71045; 71260; 80048; 80053; 80069; 81001; 83735; 84439; 84443; 84484; 85025; 85027; 85379; 93005; 93010; 93306; 94640; 94664; 94760; 96365-59; 96367-59; 96372; 96375-59; 97110; 97116; 97162; 99285-25; A9270; G0378; J0456; J0696; J1650; J2060; J7050; J7512; Q9967

== ENCOUNTER 2024-07-11 23:35 | Emergency (ER) | payer OTHER ==
[~2024-07-11] VITALS: Ht 185.4 cm; Wt 83.9 kg
[~2024-07-11 23:35] MED LIST changes: +1/2 NS 250ml250 ML
[2024-07-11] MEDS ORDERED: LIDOCAINE1 EACH TOP (23:45)
[2024-07-11] MEDS ORDERED: ZYRTEC10 M1 PO (23:45)
[2024-07-11] MEDS ORDERED: STIOLTO RESPIMAT4 G1 INH (23:46)
[2024-07-12] MEDS ORDERED: Acetaminophen 500 MG Tab PO ONE (01:20)
[2024-07-12 04:00] VITALS: BP 125/72
== END 2024-07-12 05:49 | disposition home or self-care (01) ==
LOC: ER 23:35
DX: S09.90XA Unspecified injury of head, initial encounter (principal); S30.0XXA Contusion of lower back and pelvis, initial encounter; J44.9 Chronic obstructive pulmonary disease, unspecified; I10 Essential (primary) hypertension; W01.0XXA Fall on same level from slipping, tripping and stumbling without subsequent striking against object, initial encounter; Z87.891 Personal history of nicotine dependence; Z79.899 Other long term (current) drug therapy
CPT/HCPCS: 99283; A9270